=== PATIENT | female | born 1955 | race Hispanic/Latino ===

== ENCOUNTER 2018-06-16 11:39 | Emergency (ER) | payer OTHER ==
[2018-06-16 11:57] LABS: BASOPHILS % (AUTO) 0.6 % (0.0-5.0); EOSINOPHILS % (AUTO) 1.4 % (0.0-8.0); MEAN CORPUSCULAR HEMOGLOBIN 28.4 pg (27.0-33.0); MEAN CORPUSCULAR HGB CONC 35.2 g/dL (32.0-36.0); MEAN CORPUSCULAR VOLUME 80.8 fL (79-99); MONOCYTES % (AUTO) 6.2 % (3.0-13.0); NEUTROPHILS % (AUTO) 67.8 % (40.0-77.0); NUCLEATED RED BLOOD CELLS 0.1 % (0.0-0.19); PLATELET COUNT (AUTO) 321 K/uL (130-400); RED BLOOD CELL COUNT(AUTO) 2.97 MIL/uL (4.00-5.50); RED CELL DISTRIBUTION WIDTH 14.9 % (11.0-15.5); WHITE BLOOD COUNT (AUTO) 6.9 K/uL (4.8-10.8)
[2018-06-16 12:06] LABS: APPEARANCE,URINE Clear (CLEAR); BILIRUBIN,URINE Negative (NEGATIVE); COLOR,URINE Yellow (YELLOW); GLUCOSE, URINE (UA) 500 mg/dL (NEGATIVE); KETONES,URINE Negative (NEGATIVE); LEUKOCYTE ESTERASE ,URINE Negative (NEGATIVE); NITRATE,URINE Negative (NEGATIVE); OCCULT BLOOD,URINE Small (NEGATIVE); PH,URINE 5.5 (5.0-8.0); PROTEIN,URINE >=1000 mg/dL (NEGATIVE); UROBILINOGEN,URINE 0.2 mg/dL (0.2-1.0)
[2018-06-16 12:11] LABS: CREATININE 2.3 mg/dL (0.5-1.5); POTASSIUM 4.2 mmol/L (3.5-5.1)
[2018-06-16 12:16] LABS: ALBUMIN 2.5 g/dL (3.5-5.0); BILIRUBIN,TOTAL 0.4 mg/dL (0.2-1.0); TOTAL PROTEIN, SERUM 6.1 g/dL (6.0-8.3)
[2018-06-16 12:27] LABS: B-TYPE NATRIURETIC PEPTIDE 1030 pg/mL (0-100)
[2018-06-16 12:37] LABS: BACTERIA,URINE Rare /HPF (None Seen); RBC,URINE 0-1 /HPF (0-1); WBC,URINE 0-1 /HPF (0-1)
[2018-06-16 12:57] LABS: INR 0.89 (0.85-1.15); PARTIAL THROMBOPLASTIN TIME 28.5 SEC (26.3-35.5); PROTHROMBIN TIME 9.4 SEC (9.6-11.6)
[2018-06-16] MEDS ORDERED: FUROSEMIDE 10 MG/ML 2ML VIAL ONE (13:16)
[2018-06-16] MEDS ORDERED: NITROGLYCERIN 1GM/1 INCH PACKET TD ONE (13:16)
[2018-06-16] MEDS ORDERED: ASPIRIN 325 MG TABLET ONE (13:16)
== END 2018-06-16 15:35 | disposition home or self-care (01) ==
LOC: EDH 11:39
DX: I13.0 Hypertensive heart and chronic kidney disease with heart failure and stage 1 through stage 4 chronic kidney disease, or unspecified chronic kidney disease (principal); E11.22 Type 2 diabetes mellitus with diabetic chronic kidney disease; N18.4 Chronic kidney disease, stage 4 (severe); I50.9 Heart failure, unspecified; J91.8 Pleural effusion in other conditions classified elsewhere; R80.9 Proteinuria, unspecified; E87.70 Fluid overload, unspecified; Z98.890 Other specified postprocedural states
CPT/HCPCS: 36415; 71045; 80053; 81001; 82550; 83880; 84484 ×2; 85025; 85610; 85730; 93005 ×2; 96374; 99284; J1940

== ENCOUNTER 2022-03-07 08:11 | Day surgery (SDC) | payer MEDICARE ==
[2022-03-06 13:05] LABS: MEAN CORPUSCULAR HEMOGLOBIN 29.2 pg (27.0-33.0); MEAN CORPUSCULAR HGB CONC 32.3 g/dL (32.0-36.0); MEAN CORPUSCULAR VOLUME 90.3 fL (79-99); PLATELET COUNT (AUTO) 246 K/uL (130-400); RED BLOOD CELL COUNT(AUTO) 4.32 MIL/uL (4.00-5.50); RED CELL DISTRIBUTION WIDTH 15.9 % (11.0-15.5); WHITE BLOOD COUNT (AUTO) 7.9 K/uL (4.8-10.8)
[2022-03-06 13:29] LABS: INR 1.18 (0.85-1.15); PROTHROMBIN TIME 12.7 SEC (9.6-11.6)
[2022-03-06 13:30] LABS: PARTIAL THROMBOPLASTIN TIME 29.3 SEC (26.3-35.5)
[2022-03-06 13:45] LABS: CREATININE 4.1 mg/dL (0.5-1.5); POTASSIUM 4.1 mmol/L (3.5-5.1)
[2022-03-06 14:08] VITALS: BP 146/71
[2022-03-06 14:20] LABS: BASOPHILS % (MANUAL) 1 % (0-2); LYMPHOCYTES % (MANUAL) 15 % (22-44); MAN.DIFF COMMENT-IMPRESSION MANUAL DIFFERENTIAL; MONOCYTES % (MANUAL) 3 % (2-9); PLATELET MORPHOLOGY COMMENT ADEQUATE; SEGMENTED NEUTROPHILS % 81 % (40-70)
[2022-03-07] VITALS (8 sets, daily range): BP systolic 131–149; BP diastolic 60–69
[~2022-03-07] VITALS: Ht 160 cm; Wt 76.2 kg
[~2022-03-07 08:11] MED LIST: AMLO-257 PO; ATOR10 PO; CARV6.25 PO; DiphenhydrAMINE HCL 50 MG/ML VIAL IVP PRN; FOLI1TAB85 PO; GABA400C PO; HYDR-3421 PO; INSU100I15 SQ; INSU100V12 SQ; ISOS60TA77 PO; LEVO88TA63 PO; LISI20TA24 PO; ROPI0.5T7 PO
[2022-03-07] MEDS ORDERED: 0.9%NACL 1000ML 1,000 ML IV ONE (08:26)
[2022-03-07] MEDS ORDERED: NITROGLYCERIN 50MG VIAL ONE (11:27)
[2022-03-07] MEDS ORDERED: IOHEXOL-350 50ML VIAL IV ONE (11:27)
[2022-03-07] MEDS ORDERED: IOHEXOL 350 MG/ML 100ML INFUS..BTL IV ONE (11:27)
[2022-03-07] MEDS ORDERED: MIDAZOLAM HCL 1 MG/ML 2ML VIAL ONE (11:27)
[2022-03-07] MEDS ORDERED: HEPARIN 10,000 UNIT/10ML (1,000 UNIT/ML) VIAL ONE (11:27)
[2022-03-07] MEDS ORDERED: LIDOCAINE HCL 400MG/20ML VIAL ONE (11:28)
[2022-03-07] MEDS ORDERED: FENTANYL CITRATE PF 50 MCG/1 ML 2ML VIAL ONE (11:28)
[2022-03-07] MEDS ORDERED: DEXTROSE 50%-WATER 50 ML DISP.SYRIN IV PRN (12:30)
[2022-03-07] MEDS ORDERED: 0.9%NACL 10ML VIAL IVP SCH (12:30)
[2022-03-07] MEDS ORDERED: INSULIN HUMULIN R 100 UNIT/ML 3ML ONE (14:25)
[2022-03-07] MEDS ORDERED: INSULIN HUMULIN R 100 UNIT/ML 3ML SQ SCH (16:30)
== END 2022-03-07 16:06 | disposition home or self-care (01) ==
LOC: DAH 08:11
PROVIDERS: ATTEND Internal Medicine Interventional Cardiology
DX: I25.119 Atherosclerotic heart disease of native coronary artery with unspecified angina pectoris (principal); I25.82 Chronic total occlusion of coronary artery; I13.0 Hypertensive heart and chronic kidney disease with heart failure and stage 1 through stage 4 chronic kidney disease, or unspecified chronic kidney disease; E11.22 Type 2 diabetes mellitus with diabetic chronic kidney disease; N18.4 Chronic kidney disease, stage 4 (severe); I50.32 Chronic diastolic (congestive) heart failure; I25.2 Old myocardial infarction; E78.2 Mixed hyperlipidemia; Z98.890 Other specified postprocedural states; Z82.49 Family history of ischemic heart disease and other diseases of the circulatory system; Z83.3 Family history of diabetes mellitus; Z87.891 Personal history of nicotine dependence; Z79.01 Long term (current) use of anticoagulants; Z79.899 Other long term (current) drug therapy; Z79.4 Long term (current) use of insulin
CPT/HCPCS: 80048; 85025; 85610; 85730; 93005; 93458; 82948 ×2; 36415; J1815; C1894 ×2; C1760; J1200; J3010; J3490 ×2; J7030; J1644 ×2; J2250; Q9967 ×2; A4215; A4222; A4221; A4663; A4216; A4606; Q9965; A4223 ×3; 96366; 96374